=== PATIENT | male | born 1975 | race American Indian/Alaskan Native ===

== ENCOUNTER 2022-02-16 13:22 | Emergency (ER) | payer SELFPAY ==
[2022-02-16 14:58] VITALS: BP 160/99
--- NOTE | 2022-02-16 16:15 | Emergency Department Report ---
- General Chief Complaint: Upper Respiratory Infection Stated Complaint: SWOLLEN FINGER/ CHEST COLD Source: patient Mode of arrival: Ambulatory Limitations: No Limitations - History of Present Illness Initial Comments: Patient is a 46-year-old male with no past medical history who presents to the ED with complaint of acute onset persistent nasal and sinus congestion, persistent dry cough and body aches for the last 1 week. Patient also complains of persistent painful swollen distal left arm rash with thick purulent discharge for the last 2 days. Patient states that the symptoms have worsened in the last 5 days and he decided come to the ED for evaluation. Patient denies dizziness, syncope, traumatic injury, chest pain or shortness of breath, nausea and vomiting, fever, chills, cough, sore throat, numbness and tingling or weakness of upper extremities bilaterally. MD Complaint: cough, rhinorrhea, nasal congestion, sinus pain, other (left thumb swelling and pain with purulent discharge) -: Gradual, week(s) (2) Severity: moderate Severity scale (0 -10): 5 Quality: sharp, aching Consistency: constant Improves With: nothing Worsens With: nothing Associated Symptoms: denies other symptoms, rhinorrhea, nasal congestion, cough, rash (left thumb swollen rash with purulent discharge). denies: fever, chills, headache, sore throat, stiff neck, chest pain, shortness of breath, abdominal pain, nausea, vomiting, diarrhea, right sweats, hoarseness, ear pain Treatments Prior to Arrival: Ibuprofen - Related Data Previous Rx's Medication Instructions Recorded Last Taken Type HYDROcodone/APAP 7.5-325 [[place] 1 each PO Q6HR PRN #20 tablet 01/07/15 01/13/15 Rx 7.5-325 mg TAB] cephALEXin [Keflex] 500 mg PO Q8H #21 cap 01/07/15 01/13/15 Rx Doxycycline Monohydrate 100 mg PO Q12H #28 capsule 03/17/15 Unknown Rx [Doxycycline Monohydrate CAP] Ciprofloxacin HCl [Ciprofloxacin 500 mg PO Q12HR #14 tab 05/08/15 Unknown Rx TAB] HYDROcodone/APAP 7.5-325 [[place] 1 each PO Q6HR PRN #12 tablet 05/08/15 Unknown Rx 7.5/325] methOCARBAMOL [Robaxin TAB] 750 mg PO Q8H PRN #21 tablet 06/21/15 Unknown Rx raNITIdine HCl [Zantac] 150 mg PO Q12H #60 tablet 06/21/15 Unknown Rx Benzonatate [Tessalon Perles] 100 mg PO Q8HR #30 cap 02/16/22 Unknown Rx DOXYCYCLINE Hyclate [Vibramycin 100 mg PO Q12HR #20 capsule 02/16/22 Unknown Rx CAP] Ibuprofen [Motrin] 800 mg PO Q8HR PRN #30 tablet 02/16/22 Unknown Rx methylPREDNISolone [Medrol 4MG 4 mg PO DAILY #21 tab 02/16/22 Unknown Rx DOSEPAK (21 tabs)] Allergies Allergy/AdvReac Type Severity Reaction Status Date / Time penicillin Allergy Unknown Verified 02/16/22 14:59 ED Review of Systems ROS: Stated complaint: SWOLLEN FINGER/ CHEST COLD Other details as noted in HPI Constitutional: denies: chills, fever Eyes: denies: eye pain, eye discharge, vision change ENT: congestion. denies: ear pain, throat pain Respiratory: cough. denies: shortness of breath, wheezing Cardiovascular: denies: chest pain, palpitations Endocrine: no symptoms reported Gastrointestinal: denies: abdominal pain, nausea, vomiting, diarrhea Genitourinary: denies: urgency, dysuria Musculoskeletal: arthralgia (left thumb pain due to mildly erythematous rash with purulent discharge). denies: back pain, joint swelling Skin: rash (distal left thumb swollen open wound with purulent discharge), change in color. denies: lesions, change in hair/nails, pruritus Neurological: denies: headache, weakness, paresthesias Psychiatric: denies: anxiety, depression Hematological/Lymphatic: denies: easy bleeding, easy bruising ED Past Medical Hx - Surgical History Additional Surgical History: Left arm surgery - Social History Smoking Status: Current Every Day Smoker Substance Use Type: None - Medications Home Medications: Home Medications Medication Instructions Recorded Confirmed Last Taken Type HYDROcodone/APAP 7.5-325 [[place] 1 each PO Q6HR PRN #20 tablet 01/07/15 01/14/15 01/13/15 Rx 7.5-325 mg TAB] cephALEXin [Keflex] 500 mg PO Q8H #21 cap 01/07/15 01/14/15 01/13/15 Rx Doxycycline Monohydrate 100 mg PO Q12H #28 capsule 03/17/15 Unknown Rx [Doxycycline Monohydrate CAP] Ciprofloxacin HCl [Ciprofloxacin 500 mg PO Q12HR #14 tab 05/08/15 Unknown Rx TAB] HYDROcodone/APAP 7.5-325 [[place] 1 each PO Q6HR PRN #12 tablet 05/08/15 Unknown Rx 7.5/325] methOCARBAMOL [Robaxin TAB] 750 mg PO Q8H PRN #21 tablet 06/21/15 Unknown Rx raNITIdine HCl [Zantac] 150 mg PO Q12H #60 tablet 06/21/15 Unknown Rx Benzonatate [Tessalon Perles] 100 mg PO Q8HR #30 cap 02/16/22 Unknown Rx DOXYCYCLINE Hyclate [Vibramycin 100 mg PO Q12HR #20 capsule 02/16/22 Unknown Rx CAP] Ibuprofen [Motrin] 800 mg PO Q8HR PRN #30 tablet 02/16/22 Unknown Rx methylPREDNISolone [Medrol 4MG 4 mg PO DAILY #21 tab 02/16/22 Unknown Rx DOSEPAK (21 tabs)] ED Physical Exam - General Limitations: No Limitations General appearance: alert, in no apparent distress - Head Head exam: Present: atraumatic, normocephalic, normal inspection - Eye Eye exam: Present: normal appearance, PERRL, EOMI Pupils: Present: normal accommodation - ENT ENT exam: Present: normal orophraynx, mucous membranes moist, TM's normal bilaterally, normal external ear exam, other (Grossly congested nasal passages) - Neck Neck exam: Present: normal inspection, full ROM. Absent: tenderness - Respiratory Respiratory exam: Present: normal lung sounds bilaterally. Absent: respiratory distress, wheezes, rales, rhonchi, chest wall tenderness, accessory muscle use, decreased breath sounds, prolonged expiratory - Cardiovascular Cardiovascular Exam: Present: regular rate, normal rhythm, normal heart sounds. Absent: systolic murmur, diastolic murmur, rubs, gallop - GI/Abdominal GI/Abdominal exam: Present: soft, normal bowel sounds. Absent: tenderness, guarding, rebound, hyperactive bowel sounds, hypoactive bowel sounds, organomegaly, mass, pulsatile mass - Extremities Exam Extremities exam: Present: normal inspection, full ROM, tenderness (Palpable distal left arm tenderness with swelling and purulent discharge with mild erythematous rash), normal capillary refill. Absent: pedal edema, joint swelling, calf tenderness - Back Exam Back exam: Present: normal inspection, full ROM. Absent: tenderness, CVA tenderness (R), CVA tenderness (L), muscle spasm, paraspinal tenderness, vertebral tenderness - Neurological Exam Neurological exam: Present: alert, oriented X3, CN II-XII intact, normal gait, reflexes normal - Psychiatric Psychiatric exam: Present: normal affect, normal mood - Skin Skin exam: Present: warm, dry, intact, normal color, rash (Mild erythematous maculopapular rash on distal left arm with purulent discharge), erythema. Absent: vesicles, petechiae, pallor, ecchymosis, other ED Course Vital Signs 02/16/22 14:55 Temperature 98.3 F Pulse Rate 81 Respiratory 18 Rate Blood Pressure 160/99 [Right] O2 Sat by Pulse 100 Oximetry ED Medical Decision Making - Medical Decision Making This is a 46-year-old male with no past medical history who presents to the ED with complaint of acute onset persistent nasal and sinus congestion, persistent dry cough and body aches for the last 1 week. Patient also complains of persistent painful swollen distal left arm rash with thick purulent discharge for the last 2 days. Patient states that the symptoms have worsened in the last 5 days and he decided come to the ED for evaluation. In the ED, patient is alert and oriented x3 and is not in any distress. Patient is hemodynamically stable. Patient was discharged home on medications based on the history and physical exam findings and advised to follow-up with his primary care physician in 7 to 10 days for reevaluation or return to the ED immediately if symptoms get worse. - Differential Diagnosis Paronychia; Cellulitis; bronchitis; URI; Critical care attestation.: If time is entered above; I have spent that time in minutes in the direct care of this critically ill patient, excluding procedure time. ED Disposition Clinical Impression: Acute upper respiratory infection, Acute paronychia of left thumb Acute bronchitis Qualifiers: Bronchitis organism: other organism Qualified Code(s): J20.8 - Acute bronchitis due to other specified organisms Disposition: HOME / SELF CARE / HOMELESS Is pt being admited?: No Does the pt Need Aspirin: No Condition: Stable Instructions: Acute Bronchitis (ED), Upper Respiratory Infection, Adult, [id number], Cough, Adult, [id number], Acute Bronchitis, Adult, [id number], Cellulitis, Adult, [id number], Paronychia, [id number] Additional Instructions: Take medication with food, drink plenty of fluids, follow-up with your primary care physician in 7 to 10 days for reevaluation. Return to the ED immediately if symptoms get worse. Prescriptions: methylPREDNISolone [Medrol 4MG DOSEPAK (21 tabs)] 4 mg PO DAILY #21 tab Ibuprofen [Motrin] 800 mg PO Q8HR PRN #30 tablet PRN Reason: Pain , Severe (7-10) Benzonatate [Tessalon Perles] 100 mg PO Q8HR #30 cap DOXYCYCLINE Hyclate [Vibramycin CAP] 100 mg PO Q12HR #20 capsule Referrals: [facility] [Provider Group] - 7-10 days Forms: Work/School Release Form(ED) Time of Disposition: 16:17 Print Language: MACEDONIAN
== END 2022-02-16 17:10 | disposition home or self-care (01) ==
LOC: ED 13:22
DX: J06.9 Acute upper respiratory infection, unspecified (principal); L03.012 Cellulitis of left finger; J20.9 Acute bronchitis, unspecified; Z88.0 Allergy status to penicillin; F17.200 Nicotine dependence, unspecified, uncomplicated
CPT/HCPCS: 99282